=== PATIENT | male | born 1960 | race Caucasian/White ===

== ENCOUNTER 2017-01-29 14:46 | Emergency (ER) | payer SELFPAY ==
[~2017-01-29] VITALS: Ht 188 cm; Wt 99.8 kg
[2017-01-29 14:50] VITALS: BP 138/78
--- NOTE | 2017-01-29 15:50 | ED.ADGEN ---
Past History Past Medical History: Other Past Surgical History: Cholecystectomy Alcohol Use: Occasionally Drug Use: Methamphetamine, Other Adult General Chief Complaint Chief Complaint Generalized weakness, fatigue HPI HPI Patient is a 56-year-old male who presents with multiple medical complaints. Patient reports increased fatigue generalized weakness for the past 4 days. He is also had intermittent watery diarrhea. Eyes fever, chills nausea vomiting sweats, denies blood in stool or dark tarry stools. Patient also ports increasing anxiety shortness of breath. History of asthma and denies wheezing. Denies chest pain, chest tightness, leg pain, swelling, history of DVT, PE, CAD , congestive heart failure. Patient acknowledges heavy marijuana and methamphetamine abuse. Review of Systems Review of Systems Review symptoms as per history of present illness. All other review symptoms are negative. Allergies Allergies Allergies Coded Allergies Type Severity Reaction Last Updated Verified No Known Drug Allergies 09/26/16 No Physical Exam Physical Exam Constitutional: Well developed, well nourished, anxious, mild hyperventilation. HENT: Normocephalic, atraumatic, bilateral external ears normal, oropharynx moist, no oral exudates, nose normal. Eyes: PERRLA, EOMI, conjunctiva normal. Neck: Normal range of motion, no tenderness, supple, no stridor. Cardiovascular:Heart rate regular rhythm. Lungs & Thorax: Bilateral breath sounds clear to auscultation. Abdomen: Bowel sounds normal, soft, no tenderness. Skin: Warm, dry, no erythema, no rash. Back: No tenderness. Extremities: No tenderness. Neurologic: Alert and oriented X 3, normal motor function, normal sensory function, no focal deficits noted. Psychologic: Affect, anxious. Current Patient Data Vital Signs Vital Signs Date Time Temp Pulse Resp B/P (MAP) Pulse Ox O2 Delivery O2 Flow Rate FiO2 01/29/17 14:50 97.8 87 16 97 Room Air Lab Results Laboratory Tests Test 01/29/17 15:01 01/29/17 15:50 Glucose (Fingerstick) 102 mg/dL (70-99) H White Blood Count 5.1 x10^3/uL (4.0-11.0) Red Blood Count 4.70 x10^6/uL (4.30-5.70) Hemoglobin 14.9 g/dL (13.0-17.5) Hematocrit 43.8 % (39.0-53.0) Mean Corpuscular Volume 93 fL (79-100) Mean Corpuscular Hemoglobin 32 pg (25-35) Mean Corpuscular Hemoglobin Concent 34 g/dL (31-37) Red Cell Distribution Width 13.2 % (11.5-14.5) Platelet Count 232 x10^3/uL (140-400) Neutrophils (%) (Auto) 47 % (31-73) Lymphocytes (%) (Auto) 40 % (24-48) Monocytes (%) (Auto) 10 % (0-9) H Eosinophils (%) (Auto) 2 % (0-3) Basophils (%) (Auto) 1 % (0-3) Neutrophils # (Auto) 2.4 x10^3uL (1.8-7.7) Lymphocytes # (Auto) 2.1 x10^3/uL (1.0-4.8) Monocytes # (Auto) 0.5 x10^3/uL (0.0-1.1) Eosinophils # (Auto) 0.1 x10^3/uL (0.0-0.7) Basophils # (Auto) 0.1 x10^3/uL (0.0-0.2) Sodium Level 140 mmol/L (136-145) Potassium Level 3.8 mmol/L (3.5-5.1) Chloride Level 106 mmol/L (98-107) Carbon Dioxide Level 26 mmol/L (21-32) Anion Gap 8 (6-14) Blood Urea Nitrogen 13 mg/dL (8-26) Creatinine 0.7 mg/dL (0.7-1.3) Estimated GFR (Cockcroft-Gault) 117.5 BUN/Creatinine Ratio 19 (6-20) Glucose Level 93 mg/dL (70-99) Calcium Level 8.4 mg/dL (8.5-10.1) L Total Bilirubin 0.3 mg/dL (0.2-1.0) Aspartate Amino Transferase (AST) 20 U/L (15-37) Alanine Aminotransferase (ALT) 32 U/L (16-63) Alkaline Phosphatase 76 U/L (46-116) Troponin I Quantitative < 0.017 ng/mL (0-0.055) LW-Usp-E-Type Natriuretic Peptide 21 pg/mL (0-124) Total Protein 6.7 g/dL (6.4-8.2) Albumin 3.5 g/dL (3.4-5.0) Albumin/Globulin Ratio 1.1 (1.0-1.7) EKG EKG [EKG: Normal sinus rhythm, no acute ST-T wave changes] Radiology/Procedures Radiology/Procedures [Chest x-ray: No acute cardiopulmonary disease per etiology report] Course & Med Decision Making Course & Med Decision Making Pertinent Labs and Imaging studies reviewed. (See chart for details) [] Final Impression Final Impression [] Problems: Dragon Disclaimer Dragon Disclaimer This electronic medical record was generated, in whole or in part, using a voice recognition dictation system. LELAND AGUILAR DO Jan 29, 2017 15:50
[2017-01-29 16:16] LABS: BASO # 0.1 x10^3/uL (0.0-0.2); BASO % 1 % (0-3); EOS # 0.1 x10^3/uL (0.0-0.7); EOS % 2 % (0-3); HEMATOCRIT 43.8 % (39.0-53.0); HEMOGLOBIN 14.9 g/dL (13.0-17.5); LYMPH # 2.1 x10^3/uL (1.0-4.8); LYMPH % 40 % (24-48); MEAN CORPUSCULAR HEMOGLOBIN 32 pg (25-35); MEAN CORPUSCULAR HGB CONC 34 g/dL (31-37); MEAN CORPUSCULAR VOLUME 93 fL (79-100); MONO # 0.5 x10^3/uL (0.0-1.1); MONO % 10 % (0-9); NEUT # 2.4 x10^3uL (1.8-7.7); NEUT % 47 % (31-73); PLATELET COUNT 232 x10^3/uL (140-400); RED CELL DISTRIBUTION WIDTH 13.2 % (11.5-14.5); WHITE BLOOD COUNT 5.1 x10^3/uL (4.0-11.0)
--- NOTE | 2017-01-29 16:20 | RAD ---
Indication shortness of air. History of asthma. A single view of the chest was obtained. Comparison is made to an examination 10/03/2011. The heart and pulmonary vessels appear normal. The lungs are clear. There is no pleural fluid or pneumothorax. A significant change compared to the previous exam is not seen. IMPRESSION: No acute or focal process is seen in the chest
[2017-01-29 16:38] LABS: ALBUMIN 3.5 g/dL (3.4-5.0); ALBUMIN/GLOBULIN RATIO 1.1 (1.0-1.7); CALCIUM 8.4 mg/dL (8.5-10.1); CREATININE 0.7 mg/dL (0.7-1.3); GFR 117.5; POTASSIUM 3.8 mmol/L (3.5-5.1); TOTAL BILIRUBIN 0.3 mg/dL (0.2-1.0); TOTAL PROTEIN 6.7 g/dL (6.4-8.2)
--- NOTE | 2017-01-29 18:12 | EKG ---
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
== END 2017-01-29 17:07 | disposition home or self-care (01) ==
LOC: ER 14:46
DX: R53.1 Weakness (principal); R19.7 Diarrhea, unspecified; R53.83 Other fatigue; F15.10 Other stimulant abuse, uncomplicated; J45.909 Unspecified asthma, uncomplicated
CPT/HCPCS: 36415; 71010; 80053; 82947; 83880; 84484; 85027; 93005; 99285-25

== ENCOUNTER 2017-01-30 17:21 | Emergency (ER) | payer SELFPAY ==
[~2017-01-30] VITALS: Ht 188 cm; Wt 99.8 kg
[2017-01-30] MEDS ORDERED: IV NORMAL SALINE 1,000ML 1,000 ML IV SCH (18:12)
[2017-01-30 18:59] LABS: BASO % 0 % (0-3); EOS # 0.1 x10^3/uL (0.0-0.7); EOS % 1 % (0-3); HEMATOCRIT 44.3 % (39.0-53.0); HEMOGLOBIN 15.2 g/dL (13.0-17.5); LYMPH % 26 % (24-48); MEAN CORPUSCULAR HEMOGLOBIN 32 pg (25-35); MEAN CORPUSCULAR HGB CONC 34 g/dL (31-37); MEAN CORPUSCULAR VOLUME 94 fL (79-100); MONO # 0.4 x10^3/uL (0.0-1.1); MONO % 6 % (0-9); NEUT # 5.1 x10^3uL (1.8-7.7); NEUT % 67 % (31-73); PLATELET COUNT 243 x10^3/uL (140-400); RED BLOOD COUNT 4.72 x10^6/uL (4.30-5.70); RED CELL DISTRIBUTION WIDTH 13.1 % (11.5-14.5); WHITE BLOOD COUNT 7.7 x10^3/uL (4.0-11.0)
[2017-01-30] MEDS ORDERED: KETOROLAC 30 MG/ML VIAL. IV ONE (19:00)
[2017-01-30 19:12] LABS: ALBUMIN 3.5 g/dL (3.4-5.0); ALBUMIN/GLOBULIN RATIO 1.2 (1.0-1.7); CALCIUM 8.7 mg/dL (8.5-10.1); CREATININE 0.8 mg/dL (0.7-1.3); GFR 100.7; TOTAL BILIRUBIN 0.8 mg/dL (0.2-1.0); TOTAL PROTEIN 6.5 g/dL (6.4-8.2)
--- NOTE | 2017-01-30 19:27 | PHYS DOC ---
General Chief Complaint: DRUG ABUSE Stated Complaint: DRUG ABUSE Time Seen by MD: 18:09 Source: patient, old records Exam Limitations: no limitations Problems: History of Present Illness Initial Comments Patient is a 56-year-old male who comes in the ED complaining of body aches from detox. Patient states that he decided to stop taking methamphetamine 1 week ago. He states that he's been having body aches he attributes to withdrawals and has come requesting analgesia. He states he is going to go to inpatient rehabilitation and is in the process of finding placement for himself. He denies chest pain from a breathing fever chills sweats or nausea vomiting or diarrhea. He denies any other symptoms requests no other workup and denies recent substance abuse. Timing/Duration: 1 week Severity: moderate Modifying Factors: worse with medication, worse with movement, improves with rest Associated Symptoms: other Allergies: Coded Allergies: No Known Drug Allergies (Unverified , 09/26/16) Past Medical History Medical History: other (substance abuse) Surgical History: cholecystectomy Social History Smoker: non-smoker Alcohol: occasionally Drugs: marijuana (methamphetamine) Review of Systems Constitutional: denies chills, denies diaphoresis, denies fever, denies malaise Respiratory: denies cough, denies shortness of breath Cardiovascular: denies chest pain, denies palpitations Gastrointestinal: denies diarrhea, denies nausea, denies vomiting Genitourinary: denies dysuria, denies frequency, denies hematuria Musculoskeletal: see HPI Psychiatric/Neurological: denies headache, denies numbness, denies paresthesia , denies weakness Physical Exam General Appearance: no apparent distress Eyes: bilateral eye normal inspection, bilateral eye PERRL, bilateral eye EOMI Ear, Nose, Throat: hearing grossly normal, normal ENT inspection Neck: non-tender, supple Respiratory: normal breath sounds, no respiratory distress Cardiovascular: normal peripheral pulses, regular rate, rhythm Gastrointestinal: non tender, soft Back: no CVA tenderness, no vertebral tenderness Extremities: non-tender, normal inspection Neurologic/Psychiatric: roving tester laboratory II-XII nml as tested, no motor/sensory deficits, alert, oriented x 3 Skin: normal color, warm/dry Orders, Labs, Meds Patient's lab workup is unremarkable no elevation in troponin or creatine kinase is noted. Patient's vital signs remained stable I discussed a one-time treatment with Toradol and morphine here for his myalgias. He is getting a ride home he agrees to continue to follow-up for outpatient rehabilitation for drugs. Departure Time of Disposition: 19:26 Disposition: 01 HOME, SELF-CARE Diagnosis: methamphetamine withdrawal, myalgia Condition: STABLE Patient Instructions: Methamphetamine Abuse, Complications Additional Instructions: Rest and no strenuous activity. Continue to abstain from illicit substances. Aggressive hydration with Gatorade or water. [id number] Tylenol and/or ibuprofen as needed. [facility]. Follow-up for outpatient substance abuse detox as discussed. Return to the ED with new or changing symptoms VINICIO ALMENDAREZ DO Jan 30, 2017 19:27
[2017-01-30 19:35] VITALS: BP 136/71
[2017-01-30] MEDS ORDERED: MORPHINE SULFATE 10 MG/ML SYRINGE. SQ ONE (19:45)
== END 2017-01-30 19:45 | disposition home or self-care (01) ==
LOC: ER 17:21
DX: F15.23 Other stimulant dependence with withdrawal (principal); M79.1 Myalgia; F12.10 Cannabis abuse, uncomplicated; F15.10 Other stimulant abuse, uncomplicated
CPT/HCPCS: 36415; 80053; 82550; 84484; 85027; 96361; 96372; 96374; 99284; J1885; J2270; J7030

== ENCOUNTER 2017-03-11 19:18 | Emergency (ER) | payer SELFPAY ==
[~2017-03-11] VITALS: Ht 188 cm; Wt 91.0 kg
[2017-03-11 19:45] VITALS: BP 141/94
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
[2017-03-11] MEDS ORDERED: IBUPROFEN 600 MG TABLET. PO ONE (20:15)
[2017-03-11] MEDS ORDERED: ACETAMINOPHEN 325 MG TABLET PO ONE (20:15)
== END 2017-03-11 19:56 | disposition home or self-care (01) ==
LOC: ER 19:18
DX: H57.13 Ocular pain, bilateral (principal); F12.10 Cannabis abuse, uncomplicated; F15.10 Other stimulant abuse, uncomplicated
CPT/HCPCS: 99282; 99283

== ENCOUNTER 2017-09-01 10:47 | Emergency (ER) | payer SELFPAY ==
[~2017-09-01] VITALS: Ht 188 cm; Wt 97.5 kg
[2017-09-01 10:57] VITALS: BP 117/85
--- NOTE | 2017-09-01 10:58 | PHYS DOC ---
Past History Past Medical History: Other Past Surgical History: Cholecystectomy Alcohol Use: Occasionally Drug Use: Marijuana, Methamphetamine Adult General Chief Complaint Chief Complaint: sinus pressure HPI HPI Patient is a 56 year old M who presents with sinus pressure, congestion and nasal drainage over the past 2 weeks. He has been taking [id number] medication over the past 8 days without relief. He notes worse facial pain over the left maxillary sinus. He also notes cough and congestion consistent with his previous bronchitis. He has no other associated symptoms. He has no other exacerbating or relieving factors. Review of Systems Review of Systems Constitutional: Denies fever or chills [] Eyes: Denies change in visual acuity, redness, or eye pain [] HENT: Negative except history of present illness Respiratory: Denies cough or shortness of breath [] Cardiovascular: No additional information not addressed in HPI [] GI: Denies abdominal pain, nausea, vomiting, bloody stools or diarrhea [] : Denies dysuria or hematuria [] Musculoskeletal: Denies back pain or joint pain [] Integument: Denies rash or skin lesions [] Neurologic: Denies headache, focal weakness or sensory changes [] Endocrine: Denies polyuria or polydipsia [] All other systems were reviewed and found to be within normal limits, except as documented in this note. Family History Family History No pertinent family medical history was reported Current Medications Current Medications Current medications were reviewed Allergies Allergies Allergies Coded Allergies Type Severity Reaction Last Updated Verified No Known Drug Allergies 09/26/16 No Physical Exam Physical Exam Constitutional: Well developed, well nourished, no acute distress, non-toxic appearance. [] HENT: Normocephalic, atraumatic, mild to moderate nasal mucosa erythema and edema bilaterally worse on the left. Left maxillary sinus tenderness Eyes: EOMI, conjunctiva normal, no discharge. [] Neck: Normal range of motion, no tenderness, supple, no stridor. [] Cardiovascular:Heart rate regular rhythm, no murmur [] Lungs & Thorax: Bilateral breath sounds clear to auscultation []mild wheezing noted throughout Abdomen: Bowel sounds normal, soft, no tenderness, no masses, no pulsatile masses. [] Skin: Warm, dry, no erythema, no rash. [] Extremities: No tenderness, no cyanosis, no clubbing, ROM intact, no edema. [] Neurologic: Alert and oriented X 3, normal motor function, normal sensory function, no focal deficits noted. [] Psychologic: Affect normal, judgement normal, mood normal. [] Current Patient Data Vital Signs Vital Signs Date Time Temp Pulse Resp B/P (MAP) Pulse Ox O2 Delivery O2 Flow Rate FiO2 09/01/17 10:57 97.8 89 16 97 Room Air EKG EKG [] Radiology/Procedures Radiology/Procedures [] Course & Med Decision Making Course & Med Decision Making Pertinent Labs and Imaging studies reviewed. (See chart for details) [] Dragon Disclaimer Dragon Disclaimer This electronic medical record was generated, in whole or in part, using a voice recognition dictation system. Departure Departure: Impression: Primary Impression: Sinusitis Additional Impression: Bronchitis Disposition: 01 HOME, SELF-CARE Condition: STABLE Referrals: PCPCATARINO (PCP) Patient Instructions: Acute Bronchitis, Sinusitis Additional Instructions: Rick was seen in the emergency department for nasal congestion and facial pain. No emergency medical condition was found on history or physical exam. He was found have symptoms consistent with a bacterial sinusitis. He is given an antibiotic. He also had symptoms of bronchitis. He is given a prescription for inhaled steroids. He was given treatments in the emergency room. He is advised follow-up with his primary care doctor as needed for further management. Scripts Fluticasone Propionate (FLOVENT 110MCG HFA) 12 Gm Aer.w.adap 2 PUFF IH BID for 7 Days, #1 INHALER 2 Refills Prov: DIRK PAEZ MD 09/01/17 Amoxicillin (AMOXICILLIN) 500 Mg Capsule 1 CAP PO TID for 7 Days, #21 CAP Prov: DIRK PAEZ MD 09/01/17 Problem Qualifiers Primary Impression: Sinusitis Sinusitis location: maxillary Chronicity: acute Recurrence: non-recurrent Qualified Codes: J01.00 - Acute maxillary sinusitis, unspecified DIRK PAEZ MD Sep 01, 2017 10:58
[2017-09-01] MEDS ORDERED: AMOX500C PO (11:12)
[2017-09-01] MEDS ORDERED: FLUT12AE IH (11:12)
[2017-09-01] MEDS ORDERED: BUDESONIDE 0.5 MG/2 ML NEBU ONE (11:12)
[2017-09-01] MEDS ORDERED: cefTRIAXone IM 1 GM VIAL IM ONE (11:40)
[2017-09-01] MEDS ORDERED: ALBUTEROL SULFATE 8GM INHALER. INH ONE (11:40)
[2017-09-01] MEDS ORDERED: BUDESONIDE 0.5 MG/2 ML NEBU NEB ONE (11:40)
== END 2017-09-01 11:44 | disposition home or self-care (01) ==
LOC: ER 10:47
DX: J40 Bronchitis, not specified as acute or chronic (principal); J01.00 Acute maxillary sinusitis, unspecified; F12.10 Cannabis abuse, uncomplicated; F15.10 Other stimulant abuse, uncomplicated
CPT/HCPCS: 94640; 96372; 99284; J0696; J7613; J7626

== ENCOUNTER 2017-09-30 20:41 | Emergency (ER) | payer SELFPAY ==
[~2017-09-30] VITALS: Ht 188 cm; Wt 93.0 kg
[~2017-09-30 20:41] MED LIST: AMOX500C PO; FLUT12AE IH
--- NOTE | 2017-09-30 20:47 | ED.ADGEN ---
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 but I use to have sciatica on the Rt.. .but now it is also on the Lt..." HPI HPI Patient is a 57 year old male who presents with above hx and complaints acute exacerbation of chronic back pain. Patient denies any recent trauma or injury to exacerbate his chronic back pain. No history of fever or chills. No problems with defecation or urination. No history cancer. No history of IV drug use. Patient has chronic numbness and burning in his right leg following a sciatic into his right foot. Patient complaining of symptoms also in left leg along sciatic course. Patient has had previous CTs and MRIs. Patient requesting be treated clinically tonight until he can follow-up primary care. Patient does take Flexeril as needed for muscle spasms. No recent travel. No specific ill contacts. Pain follows a sciatic roots on left leg. Straight leg lifts exacerbate pain on left. No midline tenderness. DTRs are +2 both in right and left patella. Review of Systems Review of Systems Constitutional: Denies fever or chills [] Eyes: Denies change in visual acuity, redness, or eye pain [] HENT: Denies nasal congestion or sore throat [] Respiratory: Denies cough or shortness of breath [] Cardiovascular: No additional information not addressed in HPI [] GI: Denies abdominal pain, nausea, vomiting, bloody stools or diarrhea [] : Denies dysuria or hematuria [] Musculoskeletal: Complaints of back pain and left leg sciatic pain Integument: Denies rash or skin lesions [] Neurologic: Denies headache, focal weakness or sensory changes [] Endocrine: Denies polyuria or polydipsia [] All other systems were reviewed and found to be within normal limits, except as documented in this note. Family History Family History Noncontributory Current Medications Current Medications Current Medications Medications (Trade) Dose Ordered Sig/Adolfo Start Time Stop Time Status Last Admin Dose Admin Ketorolac Tromethamine (Toradol) 60 mg 1X ONCE 09/30/17 22:00 09/30/17 22:01 DC 09/30/17 22:21 60 MG Methylprednisolone Acetate (DEPO-Medrol IM) 40 mg 1X ONCE 09/30/17 22:00 09/30/17 22:01 DC 09/30/17 22:21 40 MG See nursing for home meds Allergies Allergies Allergies Coded Allergies Type Severity Reaction Last Updated Verified No Known Drug Allergies 09/01/17 No Physical Exam Physical Exam Constitutional: Moderately acute distress, non-toxic appearance. [] HENT: Normocephalic, atraumatic, bilateral external ears normal, oropharynx moist, no oral exudates, nose normal. [] Eyes: PERRLA, EOMI, conjunctiva normal, no discharge. [] Neck: Normal range of motion, no tenderness, supple, no stridor. [] Cardiovascular:Heart rate regular rhythm, no murmur [] Lungs & Thorax: Bilateral breath sounds equal with scattered wheezes auscultation [] Abdomen: Bowel sounds normal, soft, no tenderness, no masses, no pulsatile masses. [] No saddle loss reported. Old surgical scar. Skin: Warm, dry, no erythema, no rash. [] Back: By lateral lumbar muscle spasms and tenderness, no specific midline tenderness, there is tenderness along left sciatic nerve ,no CVA tenderness. [] Extremities: No tenderness, no cyanosis, no clubbing, ROM intact, no edema. Bilateral sciatic nerve tenderness. Some numbness noted more in right leg than left. Neurologic: Alert and oriented X 3, normal motor function, normal sensory function, no focal deficits noted. []DTRs are +2 patella, Achilles . Psychologic: Affect normal, judgement normal, mood normal. [] Current Patient Data Vital Signs Vital Signs Date Time Temp Pulse Resp B/P (MAP) Pulse Ox O2 Delivery O2 Flow Rate FiO2 09/30/17 22:20 98.2 77 20 150/94 (112) 95 Room Air 09/30/17 21:11 97.0 EKG EKG [] Radiology/Procedures Radiology/Procedures Declines radiographic evaluation at this time[] Course & Med Decision Making Course & Med Decision Making Pertinent Labs and Imaging studies reviewed. (See chart for details). Take Tylenol and ibuprofen as needed for pain. Take Vicoprofen for marked discomfort up to 4 times a day. Take Flexeril 10 mg up to 3 times a day. Follow-up with neurosurgery, primary and consider follow-up and pain center. [] Final Impression Final Impression 1. Sciatica 2. Hx DJD and Disc dz.[] Problems: Dragon Disclaimer Dragon Disclaimer This electronic medical record was generated, in whole or in part, using a voice recognition dictation system. CALLIE JURADO MD Sep 30, 2017 20:47
[2017-09-30] MEDS ORDERED: CYCL-331 PO (21:25)
[2017-09-30] MEDS ORDERED: HYDR-79 PO (21:25)
[2017-09-30] MEDS ORDERED: methylPREDNISolone ACETATE 40 MG/ML VIAL. IM ONE (22:00)
[2017-09-30] MEDS ORDERED: KETOROLAC 60 MG/2 ML VIAL. IM ONE (22:00)
[2017-09-30 22:20] VITALS: BP 150/94
== END 2017-09-30 22:25 | disposition home or self-care (01) ==
LOC: ER 20:41
DX: M54.42 Lumbago with sciatica, left side (principal); G89.29 Other chronic pain; M19.90 Unspecified osteoarthritis, unspecified site; Z90.49 Acquired absence of other specified parts of digestive tract
CPT/HCPCS: 96372; 99284; J1030; J1885

== ENCOUNTER 2017-11-01 12:06 | Emergency (ER) | payer SELFPAY ==
[~2017-11-01] VITALS: Ht 188 cm; Wt 96.6 kg
[~2017-11-01 12:06] MED LIST changes: +CYCL-331 PO; +HYDR-79 PO
[2017-11-01 12:13] VITALS: BP 133/95
[2017-11-01] MEDS ORDERED: ACETAMINOPHEN 325 MG TABLET PO ONE (12:30)
--- NOTE | 2017-11-01 13:00 | RAD ---
PQRS Compliance Statement: One or more of the following individualized dose reduction techniques were utilized for this examination: 1. Automated exposure control 2. Adjustment of the mA and/or kV according to patient size 3. Use of iterative reconstruction technique CT HEAD AND CERVICAL SPINE WITHOUT CONTRAST History: FALL OFF INVERSION TABLE, HEAD, NECK AND BACK PAIN Comparison: None. Procedure: Axial images are obtained of the head from the skull base through the vertex without IV contrast. Noncontrast helical CT of the cervical spine was performed. Axial, sagittal, and coronal reconstructions were obtained. Findings: The ventricles and sulci are normal for the patient's age. No mass-effect, midline shift, hemorrhage or obvious acute infarction is identified. Basilar cisterns are patent. Bone windows demonstrate no significant calvarial abnormality. The visualized paranasal sinuses are clear. Mastoid air cells are well aerated. There is no evidence of acute fracture or acute malalignment of the cervical spine. Facet joints are intact, moderately hypertrophic. There is mild grade 1 anterolisthesis of C4 on C5. The alignment is otherwise maintained. Straightening of normal cervical lordosis may be positional or due to muscle spasm. There is disc space narrowing and degenerative endplate spurring that is most advanced at C5/C6 and C6/C7. There is also uncinate process hypertrophy. This contributes to neural foraminal narrowing at multiple levels. Visualized soft tissues of the neck demonstrate no significant abnormalities. The visualized lung apices are clear. IMPRESSION: 1. No acute intracranial abnormality. 2. No acute fracture of the cervical spine. Electronically signed by: Bruce Sweet MD (11/01/2017 12:58 PM) [id number]
[2017-11-01 13:06] LABS: HEMOGLOBIN ISTAT 15.3 gm/dL
[2017-11-01] MEDS ORDERED: KETOROLAC 60 MG/2 ML VIAL. IM ONE (13:10)
[2017-11-01] MEDS ORDERED: KETOROLAC 30 MG/ML VIAL. IM ONE (13:15)
[2017-11-01] MEDS ORDERED: KETOROLAC 15 MG/ML VIAL. IV ONE (13:15)
--- NOTE | 2017-11-01 13:17 | RAD ---
PQRS Compliance Statement: One or more of the following individualized dose reduction techniques were utilized for this examination: 1. Automated exposure control 2. Adjustment of the mA and/or kV according to patient size 3. Use of iterative reconstruction technique CT LUMBAR SPINE WO CONTRAST, CT THORACIC SPINE WO CONTRAST Clinical Indication: FALL OFF INVERSION TABLE, HEAD, NECK AND BACK PAIN Comparison: None. TECHNIQUE: Helical CT imaging of the thoracic and lumbar spine is performed without IV contrast. Findings: There is no acute compression fracture or spondylolisthesis in the thoracic spine. There is degenerative endplate spurring. Visualized posterior ribs are intact. Vacuum disc phenomenon of T5/T6 and T6/T7. No significant narrowing of the central canal seen. There appears to be bony neural foraminal narrowing bilaterally at T3/T4, T4/T5, and T5/T6. Small calcified AP window lymph node. Ectasia of the ascending thoracic aorta. There is groundglass opacity in the right upper lobe, incompletely imaged measuring up to 3.7 cm. There is a 4 mm nodule in the posterior right upper lobe, image 50. Small groundglass nodules are seen in the left lower lobe. There are bilateral nonobstructing renal calculi. There is no hydronephrosis. There is no acute compression fracture in the lumbar spine. Small central Schmorl's node superior endplate of L3. The alignment is maintained. Mild disc space narrowing and vacuum disc phenomenon L5/S1. The other disc spaces are maintained. There are posterior disc osteophyte complexes at L2/L3 and L3/L4 mild facet hypertrophy and ligamentum flavum redundancy. Findings combine to produce minimal central canal stenosis at both levels. Narrowing of lateral recesses. There is mild to moderate bilateral neural foraminal narrowing at each level. IMPRESSION: 1. No acute compression fracture or malalignment in the thoracic or lumbar spine. 2. Nonspecific groundglass opacities in the right upper lobe and several groundglass nodules in the left lower lobe. 3. Bilateral nonobstructing renal calculi. Electronically signed by: Bruce Sweet MD (11/01/2017 1:13 PM) [id number]
--- NOTE | 2017-11-01 13:20 | PHYS DOC ---
Past History Past Medical History: Other Past Surgical History: Cholecystectomy, Other Alcohol Use: None Drug Use: None Adult General Chief Complaint Chief Complaint: MECHANICAL FALL HPI HPI 57-year-old male presenting to the emergency department today after hanging from a tilt table device upside down and landing on his head. He landed approximately3 feet off the ground. He complains of neck pain and headache after the fall. He also has chronic low back pain which he says is worse after the fall. His neck pain is a sharp shooting pain that is moderate to severe. His lumbar back pain is moderate to severe. It radiates bilaterally into his buttocks. He denies any numbness weakness or tingling of his hands or legs. He denies any vision changes slurred speech or difficulty speaking. Review of systems is negative for chest pain shortness of breath abdominal pain nausea vomiting. He denies any injuries to his extremities. All other review of systems is negative unless otherwise noted in history of present illness. ED course: 57-year-old male presenting to the emergency department after sustaining head injury while upside down on a tilt table device. Cervical collar placed upon arrival. Intramuscular Toradol along with Tylenol given. Patient does not have a ride home that she could not use opioid medications. Head and C-spine thoracic and lumbar spine CT obtained given the mechanism of injury. CT is unremarkable for acute pathology. On reexamination patient is feeling better. We will prescribe him a cyclobenzaprine and Lortab upon discharge. The patient was then discharged home in stable condition to follow up with their primary care physician over the next 2-3 days. They were to return if their symptoms worsened or if they were concerned for any reason. Face -to-face discharge instructions and return precautions were given. Patient's questions were answered to their satisfaction. Patient is comfortable with plan. Review of Systems Review of Systems SEE ABOVE. Current Medications Current Medications Current Medications Medications (Trade) Dose Ordered Sig/Adolfo Start Time Stop Time Status Last Admin Dose Admin Acetaminophen (Tylenol) 650 mg 1X ONCE 11/01/17 12:30 11/01/17 12:31 DC Allergies Allergies Allergies Coded Allergies Type Severity Reaction Last Updated Verified No Known Drug Allergies 09/01/17 No Physical Exam Physical Exam SEE ABOVE Constitutional: Well developed, well nourished, no acute distress, non-toxic appearance. [] HENT: Normocephalic, no obvious abrasions lacerations or ecchymosis. No palpable depressed skull fractures. Bilateral external ears normal, oropharynx moist, no oral exudates, nose normal. [] Eyes: PERRLA, EOMI, conjunctiva normal, no discharge. [] Neck: Normal range of motion, no tenderness, supple, no stridor. [] Cardiovascular:Heart rate regular rhythm, no murmur [] Lungs & Thorax: Bilateral breath sounds clear to auscultation [] Abdomen: Bowel sounds normal, soft, no tenderness, no masses, no pulsatile masses. [] Skin: Warm, dry, no erythema, no rash. [] Back: Patient has tenderness to palpation along the cervical spine without any step-offs abrasions lacerations or ecchymosis. Also tender to palpation along the thoracic and lumbar spine without any step-offs. Extremities: No tenderness, no cyanosis, no clubbing, ROM intact, no edema. [] Neurologic: Mental status: Awake oriented and alert x3 Cranial nerves: Extraocular movements intact, eyebrows klaudia bilaterally, smile symmetric, uvula elevation nl, shoulder shrug intact bilaterally, tongue protrusion normal DTRs: 2+ in knee. Sensation: equal and normal in all extremities Strength: 5/5 in upper and lower extremities bilaterally Psychologic: Affect normal, judgement normal, mood normal. [] EKG EKG [] Radiology/Procedures Radiology/Procedures [] Course & Med Decision Making Course & Med Decision Making Pertinent Labs and Imaging studies reviewed. (See chart for details) [] Dragon Disclaimer Dragon Disclaimer This electronic medical record was generated, in whole or in part, using a voice recognition dictation system. Departure Departure: Impression: Primary Impression: Head injury Additional Impression: Neck pain Disposition: XF SHT-TRM HOSP Condition: STABLE Referrals: PCP,NO (PCP) Patient Instructions: Back Pain, Adult Additional Instructions: Thank you for allowing us to participate in your care today. Followup with your primary care physician in 3 days if your symptoms do not improve. Call your Primary Doctor tomorrow and inform them of your visit today. If you do not have a primary care provider you can ask for a list of our primary care providers. Return to the emergency department you have any new or concerning findings. This should be evaluated by the primary care physician and any necessary consulting services for continued management within a few days after discharge. Return to emergency room if you have any new or concerning symptoms including but not limited to fever, chills, nausea, vomiting, intractable pain, any new rashes, chest pain, shortness of air, uncontrolled bleeding, difficulty breathing, and/or vision loss. Problem Qualifiers MONIKA PATEL MD Nov 01, 2017 13:20
== END 2017-11-01 13:40 | disposition short-term general hospital (02) ==
LOC: ER 12:06
DX: S09.90XA Unspecified injury of head, initial encounter (principal); M54.2 Cervicalgia; G89.29 Other chronic pain; W08.XXXA Fall from other furniture, initial encounter; Y93.89 Activity, other specified; Y92.89 Other specified places as the place of occurrence of the external cause; Y99.8 Other external cause status
CPT/HCPCS: 36415; 70450; 72125; 72128; 72131; 80047; 85014; 85018; 96372; 99285; J1885

== ENCOUNTER 2018-02-01 15:33 | Emergency (ER) | payer SELFPAY ==
[~2018-02-01] VITALS: Ht 188 cm; Wt 91.0 kg
[2018-02-01] MEDS ORDERED: diazePAM 2 MG TABLET PO ONE (16:00)
[2018-02-01] MEDS ORDERED: MORPHINE SULFATE 5 MG/ML SYRINGE. IM ONE (16:00)
[2018-02-01] MEDS ORDERED: KETOROLAC 60 MG/2 ML VIAL. IM ONE (16:00)
[2018-02-01] MEDS ORDERED: DIAZ2TAB PO (16:11)
[2018-02-01] MEDS ORDERED: HYDR-79 PO (16:11)
--- NOTE | 2018-02-01 16:11 | PHYS DOC ---
Past History Past Medical History: Hypothyroid Past Surgical History: Cholecystectomy Alcohol Use: Rarely Drug Use: None Adult General Chief Complaint Chief Complaint: BACK PAIN OR INJURY HPI HPI Patient is a 57-year-old male who presents for acute on chronic low back pain which she has had for years. 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 He states he has been told by specialist that he needs surgery but he has never had surgery. He says the pain is having today is exactly the same pain that he usually has the same location. He denies any difficulty urinating or defecating and has no focal weakness or numbness. He is able to walk but has some difficulty when doing so which is typical for him. He has been to this emergency department previously for the same back pain and also for substance/methamphetamine abuse. He is alert and oriented 4, calm, appears to be in no distress at this time. No red flags for serious back pain etiology identified at this time. The patient declines imaging today which was offered. Review of Systems Review of Systems Constitutional: Denies fever or chills [] Eyes: Denies change in visual acuity, redness, or eye pain [] HENT: Denies nasal congestion or sore throat [] Respiratory: Denies cough or shortness of breath [] Cardiovascular: No additional information not addressed in HPI [] GI: Denies abdominal pain, nausea, vomiting, bloody stools or diarrhea [] : Denies dysuria or hematuria [] Musculoskeletal: + low back pain Integument: Denies rash or skin lesions [] Neurologic: Denies headache, focal weakness or sensory changes [] Endocrine: Denies polyuria or polydipsia [] All other systems were reviewed and found to be within normal limits, except as documented in this note. Current Medications Current Medications Current Medications Medications (Trade) Dose Ordered Sig/Adolfo Start Time Stop Time Status Last Admin Dose Admin Diazepam (Valium) 2 mg 1X ONCE 02/01/18 16:00 02/01/18 16:01 UNV Ketorolac Tromethamine (Toradol) 60 mg 1X ONCE 02/01/18 16:00 02/01/18 16:01 UNV Morphine Sulfate (Morphine 5mg Syringe) 5 mg 1X ONCE 02/01/18 16:00 02/01/18 16:01 UNV Allergies Allergies Allergies Coded Allergies Type Severity Reaction Last Updated Verified No Known Drug Allergies 09/01/17 No Physical Exam Physical Exam Constitutional: Well developed, well nourished, no acute distress, non-toxic appearance. [] HENT: Normocephalic, atraumatic, bilateral external ears normal, oropharynx moist, no oral exudates, nose normal. [] Eyes: PERRLA, EOMI, conjunctiva normal, no discharge. [] Neck: Normal range of motion, no tenderness, supple, no stridor. [] Cardiovascular:Heart rate regular rhythm, no murmur [] Lungs & Thorax: Bilateral breath sounds clear to auscultation [] Abdomen: Bowel sounds normal, soft, no tenderness, no masses, no pulsatile masses. [] Skin: Warm, dry, no erythema, no rash. [] Back: +ttp over L2-5 and paraspinal lumbar region, no step-off or deformity, appears atraumatic, no CVA tenderness. [] Extremities: No tenderness, no cyanosis, no clubbing, ROM intact, no edema. [] Neurologic: Alert and oriented X 3, normal motor function, normal sensory function, no focal deficits noted. [] excellent b/l lower extremity strength, stable gait Psychologic: Affect normal, judgement normal, mood normal. [] EKG EKG [] Radiology/Procedures Radiology/Procedures [] Course & Med Decision Making Course & Med Decision Making Pertinent Labs and Imaging studies reviewed. (See chart for details) No red flags for serious back pain etiology identified. The patient declines any imaging today stating that this is his chronic pain. Pain management follow- up provided. Prescriptions provided for comfort. Dragon Disclaimer Dragon Disclaimer This electronic medical record was generated, in whole or in part, using a voice recognition dictation system. Departure Departure: Impression: Primary Impression: Low back pain Additional Impression: Chronic pain Disposition: 01 HOME, SELF-CARE Condition: STABLE Referrals: PCP,CATARINO (PCP) HOMER ROQUE MD Patient Instructions: Chronic Pain Management Additional Instructions: Follow-up with Dr. Roque who is a facilities painter. Return to the emergency department for new or worsening symptoms. Take the prescribed medicine as directed, as needed. Scripts Diazepam (VALIUM) 2 Mg Tablet 2 MG PO TID, #10 TAB Prov: DEVENDRA HOLLIS DO 02/01/18 Hydrocodone/Ibuprofen (HYDROCODONE-IBUPROFEN 7.5-200 ) 1 Each Tablet 1 TAB PO PRN Q6HRS PRN for PAIN, #10 TAB 0 Refills Prov: DEVENDRA HOLLIS DO 02/01/18 Problem Qualifiers DEVENDRA HOLLIS DO Feb 01, 2018 16:11
[2018-02-01 16:35] VITALS: BP 154/87
== END 2018-02-01 16:39 | disposition home or self-care (01) ==
LOC: ER 15:33
DX: G89.29 Other chronic pain (principal); M54.5 Low back pain; E03.9 Hypothyroidism, unspecified
CPT/HCPCS: 96372; 99284; J1885; J2270

== ENCOUNTER 2019-01-30 20:16 | Emergency (ER) | payer SELFPAY ==
[~2019-01-30] VITALS: Ht 188 cm; Wt 91.0 kg
[~2019-01-30 20:16] MED LIST changes: +DIAZ2TAB PO; +HYDR-1179 PO; -HYDR-79 PO
[2019-01-30] MEDS ORDERED: IV RINGERS SOLUTION,LACTATED 1,000 ML IV SCH (20:18)
--- NOTE | 2019-01-30 20:18 | ED.ADGEN ---
Past History Past Medical History: Anxiety, Depression, Hypothyroid Past Surgical History: Cholecystectomy Alcohol Use: Rarely Drug Use: None Adult General Chief Complaint Chief Complaint "I am having some anxiety.. HPI HPI Patient is a 58 year old male who presents with above hx and complaints depression with anxiety,. Patient denies any suicidal or homicidal ideation. Patient states he's had anxiety in the past. Was concerned because he felt like his heart was racing. And requested a physical exam. Pt states it feels like his body aches all over. Patient requesting hydrocodone for his bone pain. Patient does give a history of chronic pain in knees and ankles and low back. Patient does smoke. Patient does use marijuana. No recent travel. No specific ill contacts. No history immunosuppression. No history of recent trauma. Review of Systems Review of Systems Constitutional: Denies fever or chills [] Eyes: Denies change in visual acuity, redness, or eye pain [] HENT: Denies nasal congestion or sore throat [] Respiratory: Denies cough or shortness of breath [] Cardiovascular: No additional information not addressed in HPI [] GI: Denies abdominal pain, nausea, vomiting, bloody stools or diarrhea [] : Denies dysuria or hematuria [] Musculoskeletal: Complains of generalized musculoskeletal pain Integument: Denies rash or skin lesions [] Neurologic: Denies headache, focal weakness or sensory changes [] Endocrine: Denies polyuria or polydipsia [] All other systems were reviewed and found to be within normal limits, except as documented in this note. Family History Family History Noncontributory Current Medications Current Medications Current Medications Medications (Trade) Dose Ordered Sig/Adolfo Start Time Stop Time Status Last Admin Dose Admin Ketorolac Tromethamine (Toradol Im) 60 mg 1X ONCE 01/30/19 22:30 01/30/19 22:31 DC 01/30/19 22:25 60 MG Lactated Ringer's 1,000 ml @ 1,000 mls/hr Q1H 01/30/19 20:18 01/30/19 21:17 DC 01/30/19 20:54 1,000 MLS/HR Magnesium Hydroxide (Milk Of Magnesia) 2,400 mg 1X ONCE 01/30/19 23:45 01/30/19 23:46 DC 01/30/19 23:54 2,400 MG Methylprednisolone Acetate (DEPO-Medrol IM) 40 mg 1X ONCE 01/30/19 22:30 01/30/19 22:31 DC 01/30/19 22:26 40 MG Morphine Sulfate (Morphine 10mg Syringe) 10 mg 1X ONCE 01/30/19 22:30 01/30/19 22:31 DC 01/30/19 22:26 10 MG Orphenadrine Citrate (Norflex) 60 mg 1X ONCE 01/30/19 22:30 01/30/19 22:31 DC 01/30/19 22:25 60 MG see nursing for home meds Allergies Allergies Allergies Coded Allergies Type Severity Reaction Last Updated Verified No Known Drug Allergies 09/01/17 No Physical Exam Physical Exam Constitutional: Moderate distress, non-toxic appearance. [] HENT: Normocephalic, atraumatic, bilateral external ears normal, oropharynx moist, no oral exudates, nose normal. [] Eyes: PERRLA, EOMI, conjunctiva normal, no discharge. [] Neck: Normal range of motion, no tenderness, supple, no stridor. [] Cardiovascular:Heart rate regular rhythm, no murmur [] Lungs & Thorax: Bilateral breath sounds equal apex with scattered wheezes auscultation [] Abdomen: Bowel sounds normal, soft, no tenderness, no masses, no pulsatile masses. [] Skin: Warm, dry, no erythema, no rash. [] Back: Mild lumbar tenderness, no CVA tenderness. [] Extremities: No tenderness, no cyanosis, no clubbing, ROM intact, no edema. [] Some crepitation with range of motion of knees Neurologic: Alert and oriented X 3, normal motor function, normal sensory function, no focal deficits noted. [] Psychologic: Affect anxious, judgement normal, mood normal. [] Current Patient Data Vital Signs Vital Signs Date Time Temp Pulse Resp B/P (MAP) Pulse Ox O2 Delivery O2 Flow Rate FiO2 01/30/19 22:26 18 97 Room Air 01/30/19 20:16 98.6 71 Lab Results Laboratory Tests Test 01/30/19 20:50 White Blood Count 6.4 x10^3/uL (4.0-11.0) Red Blood Count 4.66 x10^6/uL (4.30-5.70) Hemoglobin 15.1 g/dL (13.0-17.5) Hematocrit 44.6 % (39.0-53.0) Mean Corpuscular Volume 96 fL (79-100) Mean Corpuscular Hemoglobin 32 pg (25-35) Mean Corpuscular Hemoglobin Concent 34 g/dL (31-37) Red Cell Distribution Width 13.0 % (11.5-14.5) Platelet Count 280 x10^3/uL (140-400) Neutrophils (%) (Auto) 58 % (31-73) Lymphocytes (%) (Auto) 33 % (24-48) Monocytes (%) (Auto) 8 % (0-9) Eosinophils (%) (Auto) 1 % (0-3) Basophils (%) (Auto) 1 % (0-3) Neutrophils # (Auto) 3.7 x10^3uL (1.8-7.7) Lymphocytes # (Auto) 2.1 x10^3/uL (1.0-4.8) Monocytes # (Auto) 0.5 x10^3/uL (0.0-1.1) Eosinophils # (Auto) 0.1 x10^3/uL (0.0-0.7) Basophils # (Auto) 0.0 x10^3/uL (0.0-0.2) Erythrocyte Sedimentation Rate 2 (0-15) Prothrombin Time 10.9 SEC (9.4-11.4) Prothrombin Time INR 1.1 (0.9-1.1) PTT 26 SEC (23-33) D-Dimer (Leona) 0.33 mg/L (0.00-0.50) Urine Collection Type Unknown Urine Color Yellow Urine Clarity Hazy Urine pH 5.5 Urine Specific [place] 1.025 Urine Protein 30 mg/dl (NEG-TRACE) Urine Glucose (UA) Neg mg/dL (NEG) Urine Ketones (Stick) 15 mg/dL (NEG) Urine Blood Neg (NEG) Urine Nitrite Neg (NEG) Urine Bilirubin Neg (NEG) Urine Urobilinogen Dipstick 0.2 mg/dL (0.2 mg/dL) Urine Leukocyte Esterase Trace (NEG) Urine RBC 0 /HPF (0-2) Urine WBC Occ /HPF (0-4) Urine Squamous Epithelial Cells Occ /LPF Urine Bacteria Few /HPF (0-FEW) Urine Hyaline Casts Occ /HPF Sodium Level 140 mmol/L (136-145) Potassium Level 3.7 mmol/L (3.5-5.1) Chloride Level 103 mmol/L (98-107) Carbon Dioxide Level 27 mmol/L (21-32) Anion Gap 10 (6-14) Blood Urea Nitrogen 15 mg/dL (8-26) Creatinine 1.1 mg/dL (0.7-1.3) Estimated GFR (Cockcroft-Gault) 69.2 Glucose Level 134 mg/dL (70-99) H Calcium Level 9.4 mg/dL (8.5-10.1) Magnesium Level 1.7 mg/dL (1.8-2.4) L Total Bilirubin 0.7 mg/dL (0.2-1.0) Direct Bilirubin 0.1 mg/dL (0.0-0.2) Aspartate Amino Transferase (AST) 14 U/L (15-37) L Alanine Aminotransferase (ALT) 33 U/L (16-63) Alkaline Phosphatase 78 U/L (46-116) Creatine Kinase 65 U/L (39-308) Troponin I Quantitative < 0.017 ng/mL (0-0.055) UN-Egm-Q-Type Natriuretic Peptide 17 pg/mL (0-124) Total Protein 7.1 g/dL (6.4-8.2) Albumin 3.8 g/dL (3.4-5.0) Lipase 201 U/L (73-393) Urine Opiates Screen Neg (NEG) Urine Methadone Screen Neg (NEG) Urine Barbiturates Neg (NEG) Urine Phencyclidine Screen Neg (NEG) Urine Amphetamine/Methamphetamine Pos (NEG) Urine Benzodiazepines Screen Neg (NEG) Urine Cocaine Screen Neg (NEG) Urine Cannabinoids Screen Pos (NEG) Ethyl Alcohol Level < 10 mg/dL (0-10) Urine Ethyl Alcohol Neg (NEG) EKG EKG My interpretation EKG shows a sinus rhythm at 79 bpm. No acute findings. No findings acute STEMI of contralateral changes.[] Radiology/Procedures Radiology/Procedures No acute cardiopulmonary findings. See formal report when available[] Course & Med Decision Making Course & Med Decision Making Pertinent Labs and Imaging studies reviewed. (See chart for details) Pt. encouraged to stop smoking tobacco and marijuana. Avoid Methamphetamine use. Push fluids. Follow with primary. Return if any concerns. [] Final Impression Final Impression 1. Anxiety[]-with depression (No suicidal or homicidal ideation) 2. Myalgia and Arthralgia 3. Hypomagnesium 1.7 4. Tobacco, Methamphetamine and Marijuana Use- Chews 5. Chronic Pain Dragon Disclaimer Dragon Disclaimer This electronic medical record was generated, in whole or in part, using a voice recognition dictation system. Discharge Summary Visit Information Final Diagnosis Problems Medical Problems: (1) Anxiety Status: Acute (2) Arthralgia Status: Acute (3) Myalgia Status: Acute (4) Viral syndrome Status: Acute Brief Hospital Course Allergies Allergies Coded Allergies Type Severity Reaction Last Updated Verified No Known Drug Allergies 09/01/17 No Vital Signs Vital Signs Date Time Temp Pulse Resp B/P (MAP) Pulse Ox O2 Delivery O2 Flow Rate FiO2 01/30/19 22:26 18 97 Room Air 01/30/19 20:16 98.6 71 Lab Results Laboratory Tests Test 01/30/19 20:50 White Blood Count 6.4 x10^3/uL (4.0-11.0) Red Blood Count 4.66 x10^6/uL (4.30-5.70) Hemoglobin 15.1 g/dL (13.0-17.5) Hematocrit 44.6 % (39.0-53.0) Mean Corpuscular Volume 96 fL (79-100) Mean Corpuscular Hemoglobin 32 pg (25-35) Mean Corpuscular Hemoglobin Concent 34 g/dL (31-37) Red Cell Distribution Width 13.0 % (11.5-14.5) Platelet Count 280 x10^3/uL (140-400) Neutrophils (%) (Auto) 58 % (31-73) Lymphocytes (%) (Auto) 33 % (24-48) Monocytes (%) (Auto) 8 % (0-9) Eosinophils (%) (Auto) 1 % (0-3) Basophils (%) (Auto) 1 % (0-3) Neutrophils # (Auto) 3.7 x10^3uL (1.8-7.7) Lymphocytes # (Auto) 2.1 x10^3/uL (1.0-4.8) Monocytes # (Auto) 0.5 x10^3/uL (0.0-1.1) Eosinophils # (Auto) 0.1 x10^3/uL (0.0-0.7) Basophils # (Auto) 0.0 x10^3/uL (0.0-0.2) Erythrocyte Sedimentation Rate 2 (0-15) Prothrombin Time 10.9 SEC (9.4-11.4) Prothromb Time International Ratio 1.1 (0.9-1.1) Activated Partial Thromboplast Time 26 SEC (23-33) D-Dimer (Leona) 0.33 mg/L (0.00-0.50) Urine Collection Type Unknown Urine Color Yellow Urine Clarity Hazy Urine pH 5.5 Urine Specific [place] 1.025 Urine Protein 30 mg/dl (NEG-TRACE) Urine Glucose (UA) Neg mg/dL (NEG) Urine Ketones (Stick) 15 mg/dL (NEG) Urine Blood Neg (NEG) Urine Nitrite Neg (NEG) Urine Bilirubin Neg (NEG) Urine Urobilinogen Dipstick 0.2 mg/dL (0.2 mg/dL) Urine Leukocyte Esterase Trace (NEG) Urine RBC 0 /HPF (0-2) Urine WBC Occ /HPF (0-4) Urine Squamous Epithelial Cells Occ /LPF Urine Bacteria Few /HPF (0-FEW) Urine Hyaline Casts Occ /HPF Sodium Level 140 mmol/L (136-145) Potassium Level 3.7 mmol/L (3.5-5.1) Chloride Level 103 mmol/L (98-107) Carbon Dioxide Level 27 mmol/L (21-32) Anion Gap 10 (6-14) Blood Urea Nitrogen 15 mg/dL (8-26) Creatinine 1.1 mg/dL (0.7-1.3) Estimated GFR (Cockcroft-Gault) 69.2 Glucose Level 134 mg/dL (70-99) Calcium Level 9.4 mg/dL (8.5-10.1) Magnesium Level 1.7 mg/dL (1.8-2.4) Total Bilirubin 0.7 mg/dL (0.2-1.0) Direct Bilirubin 0.1 mg/dL (0.0-0.2) Aspartate Amino Transf (AST/SGOT) 14 U/L (15-37) Alanine Aminotransferase (ALT/SGPT) 33 U/L (16-63) Alkaline Phosphatase 78 U/L (46-116) Creatine Kinase 65 U/L (39-308) Troponin I Quantitative < 0.017 ng/mL (0-0.055) SA-Yxv-M-Type Natriuretic Peptide 17 pg/mL (0-124) Total Protein 7.1 g/dL (6.4-8.2) Albumin 3.8 g/dL (3.4-5.0) Lipase 201 U/L (73-393) Urine Opiates Screen Neg (NEG) Urine Methadone Screen Neg (NEG) Urine Barbiturates Neg (NEG) Urine Phencyclidine Screen Neg (NEG) Urine Amphetamine/Methamphetamine Pos (NEG) Urine Benzodiazepines Screen Neg (NEG) Urine Cocaine Screen Neg (NEG) Urine Cannabinoids Screen Pos (NEG) Ethyl Alcohol Level < 10 mg/dL (0-10) Urine Ethyl Alcohol Neg (NEG) Brief Hospital Course Mr. Wilson is a 58 old male who presented with anxiety and generalized myalgia. Discharge Information Condition at Discharge: Improved, Stable Disposition/Orders: D/C to Home Dischare Medications Current Medications Lactated Ringer's 1,000 ml @ 1,000 mls/hr Q1H IV Last administered on 01/30/19at 20:54; Admin Dose 1,000 MLS/HR; Start 01/30/19 at 20:18; Stop 01/30/19 at 21:17; Status DC Methylprednisolone Acetate (DEPO-Medrol IM) 40 mg 1X ONCE IM Last administered on 01/30/19at 22:26; Admin Dose 40 MG; Start 01/30/19 at 22:30; Stop 01/30/19 at 22:31; Status DC Orphenadrine Citrate (Norflex) 60 mg 1X ONCE IM Last administered on 01/30/19at 22:25; Admin Dose 60 MG; Start 01/30/19 at 22:30; Stop 01/30/19 at 22:31; Status DC Ketorolac Tromethamine (Toradol Im) 60 mg 1X ONCE IM Last administered on 01/30/19at 22:25; Admin Dose 60 MG; Start 01/30/19 at 22:30; Stop 01/30/19 at 22:31; Status DC Morphine Sulfate (Morphine 10mg Syringe) 10 mg 1X ONCE SQ Last administered on 01/30/19at 22:26; Admin Dose 10 MG; Start 01/30/19 at 22:30; Stop 01/30/19 at 22:31; Status DC Magnesium Hydroxide (Milk Of Magnesia) 2,400 mg 1X ONCE PO Last administered on 01/30/19at 23:54; Admin Dose 2,400 MG; Start 01/30/19 at 23:45; Stop 01/30/19 at 23:46; Status DC Active Scripts Active Valium (Diazepam) 2 Mg Tablet 2 Mg PO TID Hydrocodone-Ibuprofen 7.5-200 (Hydrocodone/Ibuprofen) 1 Each Tablet 1 Tab PO PRN Q6HRS PRN Cyclobenzaprine Hcl 10 Mg Tablet 10 Mg PO TIDPRN Hydrocodone-Ibuprofen 7.5-200 (Hydrocodone/Ibuprofen) 1 Each Tablet 1 Tab PO PRN Q6HRS PRN Flovent 110MCG Hfa (Fluticasone Propionate) 12 Gm Aer.w.adap 2 Puff IH BID 7 Days Amoxicillin 500 Mg Capsule 1 Cap PO TID 7 Days Dragon Disclaimer This chart was dictated in whole or in part using Voice Recognition software in a busy, high-work load, and often noisy Emergency Department environment. It may contain unintended and wholly unrecognized errors or omissions. CALLIE JURADO MD Jan 30, 2019 20:18
[2019-01-30 21:17] LABS: BASO % 1 % (0-3); EOS # 0.1 x10^3/uL (0.0-0.7); EOS % 1 % (0-3); HEMATOCRIT 44.6 % (39.0-53.0); HEMOGLOBIN 15.1 g/dL (13.0-17.5); LYMPH # 2.1 x10^3/uL (1.0-4.8); LYMPH % 33 % (24-48); MEAN CORPUSCULAR HEMOGLOBIN 32 pg (25-35); MEAN CORPUSCULAR HGB CONC 34 g/dL (31-37); MEAN CORPUSCULAR VOLUME 96 fL (79-100); MONO # 0.5 x10^3/uL (0.0-1.1); MONO % 8 % (0-9); NEUT # 3.7 x10^3uL (1.8-7.7); NEUT % 58 % (31-73); PLATELET COUNT 280 x10^3/uL (140-400); RED BLOOD COUNT 4.66 x10^6/uL (4.30-5.70); WHITE BLOOD COUNT 6.4 x10^3/uL (4.0-11.0)
[2019-01-30 21:23] LABS: AMPHETAMINE/METHAMPHETAMINE POS (NEG); BARBITURATES NEG (NEG); BENZODIAZEPINES NEG (NEG); CANNABINOIDS POS (NEG); COCAINE NEG (NEG); METHADONE NEG (NEG); OPIATES NEG (NEG); PHENCYCLIDINE NEG (NEG)
[2019-01-30 21:27] LABS: BILIRUBIN,URINE NEG (NEG); CLARITY,URINE HAZY; COLOR,URINE YELLOW; GLUCOSE,URINE NEG (NEG)
[2019-01-30 21:28] LABS: BACTERIA,URINE FEW /HPF (0-FEW); HYALINE CASTS, URINE OCC /HPF; NITRITE,URINE NEG (NEG); RBC,URINE 0 /HPF (0-2); SQUAMOUS EPITHELIAL CELL,UR OCC /LPF; UROBILINOGEN,URINE 0.2 mg/dL (0.2 mg/dL); WBC,URINE OCC /HPF (0-4)
[2019-01-30 21:37] LABS: ALBUMIN 3.8 g/dL (3.4-5.0); CALCIUM 9.4 mg/dL (8.5-10.1); CREATININE 1.1 mg/dL (0.7-1.3); DIRECT BILIRUBIN 0.1 mg/dL (0.0-0.2); GFR 69.2; MAGNESIUM 1.7 mg/dL (1.8-2.4); POTASSIUM 3.7 mmol/L (3.5-5.1); TOTAL BILIRUBIN 0.7 mg/dL (0.2-1.0); TOTAL PROTEIN 7.1 g/dL (6.4-8.2)
[2019-01-30] MEDS ORDERED: ORPHENADRINE CITRATE 60 MG/2 ML VIAL. IM ONE (22:30)
[2019-01-30] MEDS ORDERED: MORPHINE SULFATE 10 MG/ML SYRINGE. SQ ONE (22:30)
[2019-01-30] MEDS ORDERED: methylPREDNISolone ACETATE 40 MG/ML VIAL. IM ONE (22:30)
[2019-01-30] MEDS ORDERED: KETOROLAC 60 MG/2 ML VIAL. IM ONE (22:30)
[2019-01-30] MEDS ORDERED: MAGNESIUM HYDROXIDE 2,400 MG/30 ML ORAL.SUSP. PO ONE (23:45)
[2019-01-31 00:25] VITALS: BP 139/81
--- NOTE | 2019-01-31 02:02 | RAD ---
Chest AP portable at 2010: Reason for examination: Depression. Generalized pain. Comparison is made to previous study dated 01/29/2017. The heart size is normal. Mediastinum is unremarkable. Lung childers are clear. No acute bony abnormalities are seen. Impression: No acute cardiopulmonary disease. Electronically signed by: Leilani Ignacio MD (01/31/2019 1:59 AM) [id number]
--- NOTE | 2019-01-31 07:50 | EKG ---
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
== END 2019-01-31 00:25 | disposition home or self-care (01) ==
LOC: ER 20:16
DX: F41.8 Other specified anxiety disorders (principal); G89.29 Other chronic pain; M25.562 Pain in left knee; M25.561 Pain in right knee; M25.572 Pain in left ankle and joints of left foot; M25.571 Pain in right ankle and joints of right foot; M54.5 Low back pain; E83.42 Hypomagnesemia; B34.9 Viral infection, unspecified; F17.220 Nicotine dependence, chewing tobacco, uncomplicated; F15.90 Other stimulant use, unspecified, uncomplicated; F12.90 Cannabis use, unspecified, uncomplicated; E03.9 Hypothyroidism, unspecified; F32.9 Major depressive disorder, single episode, unspecified
CPT/HCPCS: 36415; 71045; 80048; 80076; 80307; 81001; 82550; 83690; 83735; 83880; 84443; 84484; 85025; 85379; 85610; 85651; 85730; 87086; 93005; 96372; 99285; G0480; J1030; J1885; J2270; J2360; J7120

== ENCOUNTER 2019-10-13 19:52 | Emergency (ER) | payer SELFPAY ==
[~2019-10-13] VITALS: Ht 188 cm; Wt 93.2 kg
[2019-10-13 20:00] VITALS: BP 123/81
--- NOTE | 2019-10-13 20:24 | PHYS DOC ---
Past History Past Medical History: Anxiety, Asthma, Depression, Hypothyroid Past Surgical History: Cholecystectomy Alcohol Use: None Drug Use: Marijuana Adult General Chief Complaint Chief Complaint: EARACHE/EAR PAIN HPI HPI 59-year-old male presents with sinus congestion, facial pain, productive cough. The patient has had sinus congestion for about a month. He has developed facial pain with it the last few days. He is concerned about a sinus infection. He also has had a cough with occasional productive sputum. He denies fever or chills at home. Finally, he uses peroxide in his ears on occasion. He has done this several times a day and "it just keeps bubbling" so he is worried about ear infection. Review of Systems Review of Systems Constitutional: Denies fever or chills [] Eyes: Denies change in visual acuity, redness, or eye pain [] HENT: Nasal congestion, ear "bubbling"[] Respiratory: cough without shortness of breath [] Cardiovascular: No additional information not addressed in HPI [] GI: Denies abdominal pain, nausea, vomiting, bloody stools or diarrhea [] : Denies dysuria or hematuria [] Musculoskeletal: Denies back pain or joint pain [] Integument: Denies rash or skin lesions [] Neurologic: Denies headache, focal weakness or sensory changes [] Endocrine: Denies polyuria or polydipsia [] All other systems were reviewed and found to be within normal limits, except as documented in this note. Allergies Allergies Allergies Coded Allergies Type Severity Reaction Last Updated Verified No Known Drug Allergies 09/01/17 No Physical Exam Physical Exam Constitutional: Well developed, well nourished, no acute distress, non-toxic appearance. [] HENT: Tenderness over the frontal and maxillary sinuses. Normocephalic, atraumatic, bilateral external ears normal, oropharynx moist, no oral exudates, nose normal. Bilateral tympanic membranes normal. Bilateral ear canals slightly erythematous consistent with irritation.[] Eyes: PERRLA, EOMI, conjunctiva normal, no discharge. [] Neck: Normal range of motion, no tenderness, supple, no stridor. [] Cardiovascular: Heart rate regular rhythm, no murmur [] Lungs & Thorax: Bilateral breath sounds clear to auscultation [] Abdomen: Bowel sounds normal, soft, no tenderness, no masses, no pulsatile masses. [] Skin: Warm, dry, no erythema, no rash. [] Back: No tenderness, no CVA tenderness. [] Extremities: No tenderness, no cyanosis, no clubbing, ROM intact, no edema. [] Neurologic: Alert and oriented X 3, normal motor function, normal sensory function, no focal deficits noted. [] Psychologic: Affect normal, judgement normal, mood normal. [] Current Patient Data Vital Signs Vital Signs Date Time Temp Pulse Resp B/P (MAP) Pulse Ox O2 Delivery O2 Flow Rate FiO2 10/13/19 20:00 97.7 71 20 123/81 (95) 96 Room Air EKG EKG [] Radiology/Procedures Radiology/Procedures [] Impressions: Preliminary interpretation chest x-ray: No acute cardiopulmonary process. Course & Med Decision Making Course & Med Decision Making Pertinent Labs and Imaging studies reviewed. (See chart for details) The patient's x-ray appears negative for acute findings. His labs are unremarkable. His influenza is negative. I will treat the patient for possible bacterial sinusitis. I will discharge him with a prescription for Augmentin. First dose in the emergency room. I do not believe he has an ear infection. He is stable for discharge at this time. [] Dragon Disclaimer Dragon Disclaimer This electronic medical record was generated, in whole or in part, using a voice recognition dictation system. Departure Departure: Impression: Primary Impression: Sinusitis, acute maxillary Disposition: 01 HOME, SELF-CARE Condition: STABLE Referrals: PCP,NO (PCP) Patient Instructions: Sinusitis, [id number] Scripts Amoxicillin/Potassium Clav (AUGMENTIN 875-125 TABLET) 1 Each Tablet 1 TAB PO BID for sinus infection for 7 Days, #14 TAB 0 Refills Prov: LELAND DIXON DO 10/13/19 Problem Qualifiers Primary Impression: Sinusitis, acute maxillary Recurrence: not specified as recurrent Qualified Codes: J01.00 - Acute maxillary sinusitis, unspecified LELAND DIXON DO Oct 13, 2019 20:24
[2019-10-13 21:27] LABS: INFLUENZA A PATIENT NEGATIVE (NEGATIVE); INFLUENZA B PATIENT NEGATIVE (NEGATIVE)
[2019-10-13] MEDS ORDERED: AMOX1TAB61 PO (21:35)
[2019-10-13] MEDS ORDERED: AMOXICILLIN/K CLAV 875/125MG TABLET. ONE (21:40)
[2019-10-13] MEDS ORDERED: AMOXICILLIN/K CLAV 875/125MG TABLET. PO ONE (21:45)
--- NOTE | 2019-10-14 00:27 | RAD ---
EXAM: CHEST 2 VIEWS. HISTORY: Cough, congestion. COMPARISON: 01/30/2019. FINDINGS: Frontal and lateral views of the chest are obtained. The lungs are expanded to the 11th posterior interspaces. The hemidiaphragms are mildly flattened. There are no confluent infiltrates. There is no pneumothorax or pleural effusion. The heart is not enlarged. IMPRESSION: 1. Hyperinflation. Correlate for air trapping. No confluent infiltrates. Electronically signed by: Marlyn Varela MD (10/14/2019 12:24 AM) [id number]
== END 2019-10-13 21:42 | disposition home or self-care (01) ==
LOC: ER 19:52
DX: J01.00 Acute maxillary sinusitis, unspecified (principal); F41.9 Anxiety disorder, unspecified; J45.909 Unspecified asthma, uncomplicated; F32.9 Major depressive disorder, single episode, unspecified; E03.9 Hypothyroidism, unspecified
CPT/HCPCS: 71046; 87804; 99284

== ENCOUNTER 2020-05-19 14:46 | Emergency (ER) | payer SELFPAY ==
[~2020-05-19] VITALS: Ht 190.5 cm; Wt 93.0 kg
[~2020-05-19 14:46] MED LIST changes: +AMOX1TAB61 PO
--- NOTE | 2020-05-19 15:19 | RAD ---
EXAM: PORTABLE CHEST 1V INDICATION: Reason: cp / Spl. Instructions: / History: . TECHNIQUE: Single view COMPARISON: 10/13/2019 chest x-ray FINDINGS: The heart size is normal. The great vessels appear unremarkable. There is no hilar or mediastinal mass. The lungs are clear. There is no pleural effusion or pneumothorax. There are no significant osseous abnormalities. IMPRESSION: No active cardiopulmonary disease. Electronically signed by: Asim Deshpande MD (05/19/2020 3:16 PM) [id number]
[2020-05-19 15:36] LABS: BASO # 0.1 x10^3/uL (0.0-0.2); BASO % 1 % (0-3); EOS % 0 % (0-3); HEMATOCRIT 43.5 % (39.0-53.0); HEMOGLOBIN 14.2 g/dL (13.0-17.5); LYMPH # 1.2 x10^3/uL (1.0-4.8); LYMPH % 23 % (24-48); MEAN CORPUSCULAR HEMOGLOBIN 33 pg (25-35); MEAN CORPUSCULAR HGB CONC 33 g/dL (31-37); MEAN CORPUSCULAR VOLUME 100 fL (79-100); MONO # 0.4 x10^3/uL (0.0-1.1); MONO % 8 % (0-9); NEUT # 3.7 x10^3uL (1.8-7.7); NEUT % 68 % (31-73); PLATELET COUNT 224 x10^3/uL (140-400); RED BLOOD COUNT 4.37 x10^6/uL (4.30-5.70); RED CELL DISTRIBUTION WIDTH 13.6 % (11.5-14.5); WHITE BLOOD COUNT 5.5 x10^3/uL (4.0-11.0)
[2020-05-19 15:47] LABS: CALCIUM 8.5 mg/dL (8.5-10.1); CREATININE 0.9 mg/dL (0.7-1.3)
[2020-05-19 15:52] VITALS: BP 120/73
[2020-05-19 15:55] LABS: BARBITURATES NEG (NEG); BENZODIAZEPINES NEG (NEG); CANNABINOIDS POS (NEG); COCAINE NEG (NEG); METHADONE NEG (NEG); OPIATES NEG (NEG); PHENCYCLIDINE NEG (NEG)
[2020-05-19 15:56] LABS: ALBUMIN 3.9 g/dL (3.4-5.0); ALBUMIN/GLOBULIN RATIO 1.2 (1.0-1.7); TOTAL BILIRUBIN 0.7 mg/dL (0.2-1.0); TOTAL PROTEIN 7.1 g/dL (6.4-8.2)
--- NOTE | 2020-05-19 15:56 | EKG ---
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
[2020-05-19 16:04] LABS: AMPHETAMINE/METHAMPHETAMINE NEG (NEG)
--- NOTE | 2020-05-19 16:26 | PHYS DOC ---
Past History Past Medical History: Anxiety, Bronchitis, Depression Past Surgical History: No Surgical History Additional Smoking Information: CONCHITA Alcohol Use: None Drug Use: Marijuana General Adult EDM: Chief Complaint: CHEST PAIN HPI: HPI: 59-year-old male past medical history significant for anxiety, depression, migraines, lumbar radiculopathy and chronic back pain, chews tobacco and history of gastric ulcer secondary to H. pylori approximately 5 years ago, presents to the ED with complaints of nonradiating burning left upper quadrant abdominal pain with associated chest fluttering for the past 2 months. Patient states symptoms worsened earlier today while sitting on a bench. States he has no energy and was in bed all day yesterday. Pain alleviates with breathing. Patient reports worsening of pain when leaning forward. Denies any cocaine abuse. Reports he takes an antidepressant and Echinacea. No family history of underlying cardiac disease, aortic process, arrhythmia or coagulopathy. No known exposure to covid. Review of Systems: Review of Systems: Constitutional: Denies fever or chills Eyes: Denies change in visual acuity HENT: Denies nasal congestion or sore throat Respiratory: Denies cough or shortness of breath Cardiovascular: Denies chest pressure, heaviness, tearing or ripping pain or hemoptysis or edema GI: Denies nausea, vomiting, melena, hematochezia, hematemesis or diarrhea : Denies dysuria or hematuria Musculoskeletal: Denies back pain or joint pain Integument: Denies rash Neurologic: Denies headache, focal weakness or sensory changes Endocrine: Denies polyuria or polydipsia Lymphatic: Denies swollen glands or diaphoresis Psychiatric: Denies depression or anxiety Heart Score: HEART Score for Chest Pain: HEART Score for Chest Pain Response (Comments) Value History Slighlty/Non-Suspicious 0 ECG Normal 0 Age >45 - < 65 1 Risk Factors 1 or 2 Risk Factors 1 Troponin < Normal Limit 0 Total 2 Risk Factors: Risk Factors: DM, Current or recent (<one month) smoker, HTN, HLP, family history of CAD, obesity. Risk Scores: Score 0 - 3: 2.5% MACE over next 6 weeks - Discharge Home Score 4 - 6: 20.3% MACE over next 6 weeks - Admit for Clinical Observation Score 7 - 10: 72.7% MACE over next 6 weeks - Early Invasive Strategies Allergies: Allergies: Allergies Coded Allergies Type Severity Reaction Last Updated Verified No Known Drug Allergies 09/01/17 No Physical Exam: PE: Constitutional: Well developed, well nourished, no acute distress, non-toxic appearance. [] HENT: Normocephalic, atraumatic, bilateral external ears normal, oropharynx moist, no oral exudates, nose normal. [] Eyes: PERRLA, EOMI, conjunctiva normal, no discharge. [] Neck: Normal range of motion, no tenderness, supple, no stridor. [] Cardiovascular:Heart rate regular rhythm, no murmur [] Lungs & Thorax: Bilateral breath sounds clear to auscultation [] Abdomen: Bowel sounds normal, soft, no tenderness, no masses, no pulsatile masses. [] Skin: Warm, dry, no erythema, no rash. [] Back: No tenderness, no CVA tenderness. [] Extremities: No tenderness, no cyanosis, no clubbing, ROM intact, no edema. [] Neurologic: Alert and oriented X 3, normal motor function, normal sensory function, no focal deficits noted. [] Psychologic: Affect normal, judgement normal, mood normal. [] Current Patient Data: Labs: Laboratory Tests Test 05/19/20 15:15 White Blood Count 5.5 x10^3/uL (4.0-11.0) Red Blood Count 4.37 x10^6/uL (4.30-5.70) Hemoglobin 14.2 g/dL (13.0-17.5) Hematocrit 43.5 % (39.0-53.0) Mean Corpuscular Volume 100 fL (79-100) Mean Corpuscular Hemoglobin 33 pg (25-35) Mean Corpuscular Hemoglobin Concent 33 g/dL (31-37) Red Cell Distribution Width 13.6 % (11.5-14.5) Platelet Count 224 x10^3/uL (140-400) Neutrophils (%) (Auto) 68 % (31-73) Lymphocytes (%) (Auto) 23 % (24-48) L Monocytes (%) (Auto) 8 % (0-9) Eosinophils (%) (Auto) 0 % (0-3) Basophils (%) (Auto) 1 % (0-3) Neutrophils # (Auto) 3.7 x10^3uL (1.8-7.7) Lymphocytes # (Auto) 1.2 x10^3/uL (1.0-4.8) Monocytes # (Auto) 0.4 x10^3/uL (0.0-1.1) Eosinophils # (Auto) 0.0 x10^3/uL (0.0-0.7) Basophils # (Auto) 0.1 x10^3/uL (0.0-0.2) Sodium Level 141 mmol/L (136-145) Potassium Level 4.0 mmol/L (3.5-5.1) Chloride Level 105 mmol/L (98-107) Carbon Dioxide Level 26 mmol/L (21-32) Anion Gap 10 (6-14) Blood Urea Nitrogen 12 mg/dL (8-26) Creatinine 0.9 mg/dL (0.7-1.3) Estimated GFR (Cockcroft-Gault) 87.0 BUN/Creatinine Ratio 13 (6-20) Glucose Level 126 mg/dL (70-99) H Calcium Level 8.5 mg/dL (8.5-10.1) Total Bilirubin 0.7 mg/dL (0.2-1.0) Aspartate Amino Transferase (AST) 11 U/L (15-37) L Alanine Aminotransferase (ALT) 20 U/L (16-63) Alkaline Phosphatase 63 U/L (46-116) Creatine Kinase 151 U/L (39-308) Troponin I Quantitative 0.019 ng/mL (0-0.055) Total Protein 7.1 g/dL (6.4-8.2) Albumin 3.9 g/dL (3.4-5.0) Albumin/Globulin Ratio 1.2 (1.0-1.7) Lipase 164 U/L (73-393) Urine Opiates Screen Neg (NEG) Urine Methadone Screen Neg (NEG) Urine Barbiturates Neg (NEG) Urine Phencyclidine Screen Neg (NEG) Urine Amphetamine/Methamphetamine Neg (NEG) Urine Benzodiazepines Screen Neg (NEG) Urine Cocaine Screen Neg (NEG) Urine Cannabinoids Screen Pos (NEG) Urine Ethyl Alcohol Neg (NEG) Vital Signs: Vital Signs Date Time Temp Pulse Resp B/P (MAP) Pulse Ox O2 Delivery O2 Flow Rate FiO2 05/19/20 14:50 97.9 66 20 140/78 (98) 97 Room Air EKG: EKG: Sinus rhythm at 62 bpm, no axis deviation, QRS 420, no T wave inversions, no ST elevations or ST depressions Radiology/Procedures: Radiology/Procedures: IMAGING REPORT Signed PATIENT: MAKEDA CARLSON ACCOUNT: [id number] : 1960 LOCATION: ER AGE: 59 SEX: M EXAM STATUS: REG ER ORD. PHYSICIAN: YUDITH CHO DO REASON: cp PROCEDURE: PORTABLE CHEST 1V EXAM: PORTABLE CHEST 1V INDICATION: Reason: cp / Spl. Instructions: / History: . TECHNIQUE: Single view COMPARISON: 10/13/2019 chest x-ray FINDINGS: The heart size is normal. The great vessels appear unremarkable. There is no hilar or mediastinal mass. The lungs are clear. There is no pleural effusion or pneumothorax. There are no significant osseous abnormalities. IMPRESSION: No active cardiopulmonary disease. Electronically signed by: Truong Herrera MD (05/19/2020 3:16 PM) [id number] DICTATED AND SIGNED BY: TRUONG HERRERA MD DATE: 05/19/20 1516 CC: PCP,CATARINO; YUDITH CHO DO ~ Course & Med Decision Making: Course & Med Decision Making Pertinent Labs and Imaging studies reviewed. (See chart for details) COVID-19 CRITERIA: The patient was evaluated during the global COVID-19 pandemic, and that diagnosis was suspected/considered upon their initial presentation. Their evaluation, treatment and testing was consistent with current guidelines for patients who present with complaints or symptoms that may be related to COVID-19. Concern for LUQ vs left lower chest wall pain, pt reports sxs are similar to h/o gastric ulcers and h pylori. H/H stable. Normal brown stool with no anemia. BP upper limits of normal-no end organ damage. No hypotension, is HD stable. No active bleeding. UDS positive for thc use. Will prescribe Pepcid. Strict ED return precautions given for typical chest pain, syncope, severe pain, melena or GI blood loss. Encouraged urgent outpatient follow-up with PMD and cardiology and GI. Life-threatening processes were considered but are low suspicion at this time, given history and physical exam. Pt was educated on all prescription medications and adverse effects. All patient's questions were answered and pt was stable at time of discharge. Life-threatening differential includes acute myocardial infarction, aortic dissection, congestive heart failure, esophageal injury including rupture, surgical abdomen, arrhythmia, cardiomyopathy, myocarditis, pericarditis, peptic ulcer disease, pneumomediastinum, pneumonia, pneumothorax, pulmonary embolus, unstable angina, rib fracture, contusion, pericardial tamponade or effusion, pulmonary contusion, GI bleed/ulcers I spoken with the patient and her caregivers. I explained the patient's condition, diagnoses and treatment plan based on the information available to me at this time. I have answered the patient and her caregiver's questions and addressed any concerns. The patient and her caregivers have a good understanding of patient's diagnosis, condition and treatment plan as can be expected at this point. Vital signs have been stable. Patient's condition is s table and appropriate for discharge from the emergency department. Patient will pursue further outpatient evaluation with primary care physician or other designated or consulting physician as outlined in the discharge instructions. The patient and/or caregivers are agreeable to this plan of care and follow-up instructions have been explained in detail. The patient and/or caregivers have received these instructions in written form and have expressed an understanding of the discharge instructions. The patient and/or caregivers are aware that any significant change of condition or worsening of symptoms should prompt immediate return to this or the closest emergency department or call to 911. Lydia Disclaimer: Lydia Disclaimer: This electronic medical record was generated, in whole or in part, using a voice recognition dictation system. Departure Departure: Impression: Primary Impression: Chest pain Additional Impression: History of gastric ulcer Disposition: HOME/RESIDENCE PRIOR TO ADM Condition: STABLE Referrals: PCP,NO (PCP) Patient Instructions: Chest Pain (Nonspecific), Pleurisy Additional Instructions: [facility] [address], [address], [place] [address] [facility] [address], [address], [place] [address] You have been tested for or diagnosed with COVID-19. It is an infection caused by a new type of coronavirus. COVID-19 will cause cold-like or mild flu symptoms in most. It can cause more severe symptoms like problems breathing in some. There is no treatment for COVID-19. The body will clear the infection over time. Self-care will help to ease discomfort. Steps to Take: Self-Care Rest as needed. Healthy habits may help you feel better. Steps include: Choose healthy foods including fruits and vegetables. Drink water throughout the day. Get plenty of sleep each night. If you smoke, try to quit. It may ease breathing. Avoid alcohol. Keep Others Healthy The virus can spread to others. Droplets are released every time you sneeze or cough. The droplets can get into the mouth, nose, or eyes of people near you and lead to infection. To lower the chances of spreading COVID-19 to others: Stay at home until your doctor has said it is safe to leave. If you tested positive this will mean staying isolated until both of the following are true: At least 7 days have passed since the start of illness. You are free of fever for at least 72 hours without the use of medicine. During this time: - Avoid public areas, events, or transportation. Do not return to work or school until your doctor has said it is safe to do so. - Call ahead if you need to go to a medical center. Let them know you may have COVID-19. It will help them guide you where to go. They may also ask you to wear a facemask when you come to the office. - If you call for emergency medical services, let them know you may have COVID- 19. While at home: - Try to avoid close contact with others. Stay about 6 feet away. - If possible, spend most of your time in a separate room from others. - Use a face mask if you will be in close contact with others such as sharing a room or vehicle. - Have someone wipe down common surfaces in the home. Use household oracle database developer every day on areas like doorknobs, counters, or sinks. - Cough or sneeze into a tissue. Throw the tissue away right after use. If a tissue is not available, cough or sneeze into your elbow. - Wash your hands often. Wash them after sneezing or coughing. Use soap and water and wash for at least 20 seconds. Alcohol based hand quill cleaner can be used if soap and water is not available. - Do not prepare food for others. Avoid sharing personal items like forks, spoons, or toothbrushes. - Avoid close contact with pets while you are sick. There is no evidence of the virus passing to pets. This is a safety step until more is known about this virus. Isolation can be frustrating. Social interaction can help. Keep in touch with friends and family through phone and tech options. You can still interact with others in your home, just keep a safe distance of about 6 feet. Follow-up: Your doctors office will check in with you to see if there are any changes in your health. You may be asked to keep track of symptoms to share with them. They will also let you know when you are clear to be in public again. Problems to Look Out For: Contact your doctor if your recovery is not going as you expect. Get emergency care if you have problems such as: - Trouble breathing - Nonstop chest pain or pressure - Changes in awareness, confusion, or problems waking - Lips or face have bluish color - Worsening of symptoms If you think you have an emergency, call for emergency medical services right away. As taken from [facility] Famotidine (PEPCID) 20 Mg Tablet 1 TAB PO BID for abdominal pain for 30 Days, #60 TAB 0 Refills Prov: YUDITH CHO DO 05/19/20 Justification of Admission: Justification of Admission: Justification of Admission Dx: N/A YUDITH CHO DO May 19, 2020 16:25
[2020-05-19] MEDS ORDERED: diazePAM 5 MG TABLET. PO ONE (16:30)
[2020-05-19] MEDS ORDERED: FAMO-63 PO (18:20)
== END 2020-05-19 18:25 | disposition home or self-care (01) ==
LOC: ER 14:46
DX: R07.89 Other chest pain (principal); R10.12 Left upper quadrant pain; G43.909 Migraine, unspecified, not intractable, without status migrainosus; F17.220 Nicotine dependence, chewing tobacco, uncomplicated; G89.29 Other chronic pain; Z87.11 Personal history of peptic ulcer disease
CPT/HCPCS: 36415; 71045; 80053; 80307; 82550; 83690; 84484; 85025; 85379; 93005; 99285